=== PATIENT | male | born 1955 | race Caucasian/White ===

== ENCOUNTER 2021-03-09 19:22 | Emergency (ER) | payer OTHER ==
[2021-03-09 19:30] VITALS: BP 138/76; PULSE 63; TEMP 98.2; BMI 27.2
== END 2021-03-09 21:43 | disposition home or self-care (01) ==
LOC: FER 19:22
PROC: 0HQFXZZ Repair Right Hand Skin, External Approach (ICD-10-PCS; principal; 2021-03-09)
DX: S61.210A Laceration without foreign body of right index finger without damage to nail, initial encounter (principal); W23.0XXA Caught, crushed, jammed, or pinched between moving objects, initial encounter
CPT/HCPCS: 73140-TC-RT-FY; 99283-25